=== PATIENT | male | born 1975 | race Caucasian/White ===

== ENCOUNTER → 2017-10-13 | Outpatient (CLI) | payer OTHER, MEDICAID ==
[~2017-10-13] MED LIST: GADOBUTROL 7.5 MMOL/7.5 ML PFS ONE
== END | disposition home or self-care (01) ==
LOC: CFH 10:14
PROVIDERS: ATTEND Physician Assistant
DX: M54.12 Radiculopathy, cervical region (principal); M62.81 Muscle weakness (generalized); G99.2 Myelopathy in diseases classified elsewhere
CPT/HCPCS: 70553; 72156; A9585